=== PATIENT | female | born 1935 | race Native Hawaiian/Other Pacific Islander ===

== ENCOUNTER 2016-11-30 10:14 | Outpatient (CLI) | payer OTHER ==
[~2016-11-30 10:14] MED LIST: ALBU90AE13 INH; ASA LO-DOSE81 MG PO; CARV12.5 PO; CIPRO500 MG PO; GABA300C2 PO; HYDR-2748 PO; HYDROCHLOROT12.5 M1 PO; KETOROLAC15 MG/ML IJ; LORA10TA3 PO; MEDROL DOSEPAK4 MG OR; NITROSTAT0.4 MG SL; NYST100016 TOP; PEPCID40 MG OR; PROM25TA52 PO; TRIA0.1C5 EX
[2016-11-30 10:55] LABS: PLATELET COUNT 289 K/uL (152-353)
[2016-11-30 11:07] LABS: POTASSIUM 3.9 mmol/L (3.6-5.2)
== END 2016-11-30 20:46 | disposition home or self-care (01) ==
LOC: LABW 10:14
PROVIDERS: Family Medicine
DX: E11.9 Type 2 diabetes mellitus without complications (principal); I10 Essential (primary) hypertension; I25.10 Atherosclerotic heart disease of native coronary artery without angina pectoris; N18.3 Chronic kidney disease, stage 3 (moderate); R53.83 Other fatigue
CPT/HCPCS: 36415; 80053; 80061; 81000; 82306; 82607; 82746; 83036; 83735; 84439; 84443; 84550; 85027

== ENCOUNTER 2017-01-25 10:50 | Emergency (ER) | payer OTHER ==
[~2017-01-25] VITALS: Ht 157.5 cm; Wt 64.0 kg
[2017-01-25 12:05] LABS: PLATELET COUNT 302 K/uL (152-353)
[2017-01-25 14:33] VITALS: BP 137/67; TEMP 97.1
== END 2017-01-25 14:50 | disposition home or self-care (01) ==
LOC: ED 10:50
DX: K52.89 Other specified noninfective gastroenteritis and colitis (principal)
CPT/HCPCS: 36415; 80053; 81000; 82150; 83690; 85027; 96360; 99284

== ENCOUNTER 2017-02-19 15:24 | Outpatient (CLI) | payer OTHER | END 2017-02-19 19:12 | disposition home or self-care (01) | LOC: RAD 15:24 | DX: M54.5 Low back pain (principal); M12.561 Traumatic arthropathy, right knee; M25.511 Pain in right shoulder; M25.521 Pain in right elbow ==

== ENCOUNTER 2017-07-22 08:22 | Outpatient (CLI) | payer OTHER | END 2017-07-22 08:54 | disposition short-term general hospital (02) | LOC: AMB 08:22 | DX: M25.551 Pain in right hip (principal); M25.511 Pain in right shoulder; W18.39XA Other fall on same level, initial encounter; Y92.098 Other place in other non-institutional residence as the place of occurrence of the external cause | CPT/HCPCS: A0425; A0427 ==

== ENCOUNTER 2017-08-30 10:02 | Outpatient (CLI) | payer OTHER | END 2017-08-30 22:13 | disposition home or self-care (01) | LOC: LAB 10:02 | DX: R35.0 Frequency of micturition (principal) | CPT/HCPCS: 81000; 87086; 87088 ==

== ENCOUNTER 2018-05-10 13:47 | Outpatient (CLI) | payer OTHER | END 2018-05-10 23:20 | disposition home or self-care (01) | LOC: RAD 13:47 | DX: M25.50 Pain in unspecified joint (principal); M79.672 Pain in left foot ==

== ENCOUNTER 2018-08-22 09:14 | Outpatient (CLI) | payer OTHER ==
[2018-08-22 09:54] LABS: PLATELET COUNT 171 K/uL (152-353)
[2018-08-22 10:23] LABS: POTASSIUM 3.6 mmol/L (3.6-5.2)
== END 2018-08-22 21:23 | disposition home or self-care (01) ==
LOC: LABW 09:14
PROVIDERS: Family Medicine
DX: I10 Essential (primary) hypertension (principal); E11.9 Type 2 diabetes mellitus without complications; E55.9 Vitamin D deficiency, unspecified; E78.00 Pure hypercholesterolemia, unspecified
CPT/HCPCS: 36415; 80053; 80061; 81000; 82306; 83036; 84439; 84443; 85027

== ENCOUNTER 2018-09-12 10:46 | Outpatient (CLI) | payer OTHER | END 2018-09-12 19:14 | disposition home or self-care (01) | LOC: MAMMO 10:46 | DX: Z12.31 Encounter for screening mammogram for malignant neoplasm of breast (principal) ==

== ENCOUNTER 2018-10-24 09:37 | Outpatient (CLI) | payer OTHER | END 2018-10-24 19:38 | disposition home or self-care (01) | LOC: LABW 09:37 | DX: R30.0 Dysuria (principal) | CPT/HCPCS: 81000; 87077; 87086; 87088; 87186 ==

== ENCOUNTER 2019-04-17 09:55 | Outpatient (CLI) | payer OTHER ==
[2019-04-17 10:40] LABS: PLATELET COUNT 239 K/uL (152-353)
[2019-04-17 11:13] LABS: POTASSIUM 4.5 mmol/L (3.6-5.2)
== END 2019-04-17 23:59 | disposition home or self-care (01) ==
LOC: LABW 09:55
PROVIDERS: Family Medicine
DX: E11.9 Type 2 diabetes mellitus without complications (principal); M25.50 Pain in unspecified joint; E78.00 Pure hypercholesterolemia, unspecified; I10 Essential (primary) hypertension; E55.9 Vitamin D deficiency, unspecified; K21.9 Gastro-esophageal reflux disease without esophagitis
CPT/HCPCS: 36415; 80053; 80061; 82306; 83036; 83735; 84439; 84443; 84550; 85027